=== PATIENT | female | born 1985 | race Caucasian/White ===

== ENCOUNTER 2017-08-12 01:43 | Day surgery (SDC) | payer BC ==
[~2017-08-12] VITALS: Ht 188 cm; Wt 94.3 kg
[~2017-08-12 01:43] MED LIST: BIRTH CONTROL PILLS; LOOVRAL PO; MEGE40TA19 PO; no routine meds
[2017-08-12 09:51] LABS: PLATELET COUNT, AUTOMATED 316 K/uL (150-450)
[2017-08-12 10:06] VITALS: BP 137/73
[2017-08-12] MEDS ORDERED: NORMOSOL R SOLN(*) 1000 ML BAG 1,000 ML IV PRN (10:15)
[2017-08-12] MEDS ORDERED: LIDOCAINE/SOD BICARB 8.4% SYR ID ONE (10:15)
[2017-08-12] MEDS ORDERED: MIDAZOLAM 2 MG/2 ML VIAL IVP PRN (10:15)
[2017-08-12] MEDS ORDERED: ceFAZolin(*) 2GM/D5W 50ML 50 ML IVPB ONE (10:15)
[2017-08-12] MEDS ORDERED: FAMOTIDINE 20 MG TAB PO ONE (10:15)
[2017-08-12] MEDS ORDERED: fentaNYL CITR 100 MCG/2 ML AMP ONE ×3 (10:50→13:32)
[2017-08-12] MEDS ORDERED: MIDAZOLAM 2 MG/2 ML VIAL ONE (10:50)
[2017-08-12] MEDS ORDERED: PROPOFOL EMUL(*) 10MG/ML 20 ML 20 ML ONE (10:51)
[2017-08-12] MEDS ORDERED: ONDANSETRON 4 MG/2 ML VIAL ONE (10:51)
[2017-08-12] MEDS ORDERED: ROCURONIUM BROM 10 MG/ML 10 ML ONE (10:51)
[2017-08-12] MEDS ORDERED: LIDOCAINE MPF 1% 5 ML VIAL ONE (10:51)
[2017-08-12] MEDS ORDERED: DEXAMETHASONE SOD PHOS 10MG/ML ONE (10:51)
[2017-08-12] MEDS ORDERED: ROPIVACAINE 0.2% 20 ML VIAL ONE ×2 (11:43→11:54)
[2017-08-12] MEDS ORDERED: ePHEDrine 25 MG/5 ML DISP.SYR IVP ONE (12:15)
[2017-08-12] MEDS ORDERED: SUGAMMADEX SOD 500 MG/5 ML SDV ONE (12:50)
[2017-08-12] MEDS ORDERED: LR(*) 1000 ML BAG 1,000 ML IV ONE (13:13)
[2017-08-12] MEDS ORDERED: METOCLOPRAMIDE 10 MG/2 ML SDV IVP PRN (13:15)
[2017-08-12] MEDS ORDERED: ONDANSETRON 4 MG/2 ML VIAL IVP PRN (13:15)
[2017-08-12] MEDS ORDERED: KETOROLAC 30 MG/ML VIAL ONE (13:16)
--- NOTE | 2017-08-12 13:34 | Post Operative Note ---
Operative Note - TECHNICAL INSPECTOR Operative Day Date: August 12, 2017 Time: 13:14 Physicians Surgeon: Itzel Shelley Anesthesia: GET 0.2% Rupivicaine Diagnosis Pre-Op Diagnosis: 32 y/o Heavy, Irregular Menses AUB-O Post-Op Diagnosis: Same Procedure Findings: Hysteroscopy: No mass or polyps noted. Appears to have significant amounts of Proliferative endometrium. Tubal ostia visualized at each cornua. Desicated tissued after Novasure ablation noted through out uterus. Total burn time 59 sec. 750 cc fluid used with 168 deficit. Laparoscopy: Significant midline anterior omental adhesions from umbilicus to just above scar. Uterus mobile with posterior fibroid. 8 Week size. Ovaries normal bilaterally. Procedure(s): Diagnostic hysteroscopy with guided D&C and Novasure Endometrial ablation Laparoscopic Bilateral Tubal ligation with Falope rings. Specimen Removed:(Maybe N/A): Endometrial currettage Complications: 0 known. Fluids Fluids: IV 1700 cc u/o: 100 Estimated Blood Loss: 50 Dictated Date OP Note Dictated: August 12, 2017 Time OP Note Dictated: 13:34 ITZEL SHELLEY DO August 12, 2017 13:34
--- NOTE | 2017-08-12 13:37 | OB/GYN Discharge Summary ---
Discharge Summary Reason for Hosp/Final Diag: (1) Abnormal uterine bleeding (AUB) Hospital Course & Plan: Underwent Novasure endometrial ablation and tubal ligation with out any difficulty. Pt to remain in PACU until she meets outpatient guidelines and will be dc'd home. Lates Vital Signs Vital Signs Date Time Temp Pulse Resp B/P (MAP) Pulse Ox O2 Delivery O2 Flow Rate FiO2 08/12/17 10:06 99.4 73 12 137/73 (94) Room Air Weight (Pounds): 208 Result Diagram: 08/12/17 0940 Condition: Improved Discharge: Home Home Meds Active Scripts Megestrol Acetate (MEGESTROL ACETATE) 40 Mg Tablet, 40 MG PO DAILY for bleeding for 30 Days, #30 TAB 0 Refills Prov:ITZEL BILLINGS DO 08/01/17 Discontinued Reported Medications Norgestrel-Ethinyl Estradiol (LOW-OGESTREL) 1 Each Tab, 1 EACH PO, TAB 08/01/17 [facility] [phone], Dr. Billings [phone] Follow up in: 2 wks PO Discharge Diet: As Tolerates, Resume Prior Admit Diet, Increase Fluid Intake Discharge Activity: As Tolerates, Pelvic Rest ITZEL BILLINGS DO August 12, 2017 13:37
[2017-08-12] MEDS ORDERED: PER PO (13:39)
[2017-08-12] MEDS ORDERED: IBUP800T37 PO (13:39)
[2017-08-12 14:15] VITALS: BP 128/77
[2017-08-12 14:35] VITALS: BP 122/69
[2017-08-12 15:44] VITALS: BP 122/87
[2017-08-12 15:45] VITALS: BP 114/64
[2017-08-12] MEDS ORDERED: IBUPROFEN 800 MG TAB PO SCH (17:00)
--- NOTE | 2017-08-12 17:48 | OPERATIVE REPORT 1 ---
EVENT DATE: August 12, 2017 SURGEON: Isaac Shelley DO ANESTHESIOLOGIST: Noel Small MD ANESTHESIA: General endotracheal intubation with 0.2% ropivacaine, 20 mL used for local only. PREOPERATIVE DIAGNOSES 1. A 32-year-old 1, para 1. 2. Heavy, irregular menses. 3. Abnormal uterine bleeding/ovulatory dysfunction. POSTOPERATIVE DIAGNOSES 1. A 32-year-old 1, para 1. 2. Heavy, irregular menses. 3. Abnormal uterine bleeding/ovulatory dysfunction. PROCEDURES PERFORMED 1. Diagnostic hysteroscopy with guided dilatation and curettage and NovaSure endometrial ablation. 2. Laparoscopic bilateral tubal ligation with Falope rings. FINDINGS Hysteroscopy: No masses or polyps noted. Appears to have significant amounts of proliferative endometrium. Tubal ostia visualized at each cornu. Desiccated tissue after the NovaSure endometrial ablation noted throughout the endometrium. Total burn time was 59 seconds. Normal saline 750 mL used for hysteroscopy with 168 mL deficit. Laparoscopy: Significant midline anterior omental adhesions from the umbilicus to just above the scar. Uterus was mobile, approximately 8 weeks size. There was a posterior fibroid noted. Ovaries were normal bilaterally. There did also appear to be some adhesions in the pelvis secondary to history of endometriosis, but the uterus was freely mobile and easily visualized. There were Falope rings bilaterally post surgery with blanching of the fallopian tubes noted after Falope rings were placed. ESTIMATED BLOOD LOSS 50 mL PATHOLOGY Endometrial curettage. INTRAVENOUS FLUIDS 1700 mL URINE OUTPUT 100 mL COMPLICATIONS None known. CONDITION Stable to recovery room and then to home. COUNTS Correct times two for all needles, laps, sponges, and instruments. INDICATIONS AND CONSENT Patient is a 32-year-old 1, para 1, who presented to clinic with the chief complaint of heavy, irregular menses. She was initially worked up, and it was felt to be ovulatory dysfunction. She was started on cyclical progesterone secondary to concerns for maintaining fertility. Patient would take progesterone therapy the second half of each month. She did this for two months, but at the second month, began to have significant heavy bleeding. She was started on combined oral contraceptions, but continued to bleed throughout. Patient presented to discuss possible surgical management and desired to proceed with laparoscopic tubal and NovaSure endometrial ablation. Patient was consented for both procedures, and appropriate consents were signed and agreed to proceed accordingly. DESCRIPTION OF PROCEDURE Patient was taken to the operating room where she was placed in dorsal supine position. She was placed under general endotracheal intubation. Once anesthesia was achieved, she was then placed in dorsal lithotomy position. She was then prepped and draped in the usual sterile manner. A sterile speculum was then placed inside the vagina. The cervix was visualized and grasped with a single-toothed tenaculum on the anterior aspect of the cervix. With the tenaculum stabilizing the uterus, the uterus was sounded 8 cm. An endometrial Pipelle was used to collect endometrial biopsy. Cervix was not needed to be dilated. The hysteroscope was easily placed through the cervix, and the uterus was visualized. No masses or polyps were noted. The endometrium appeared significantly fluffy and was proliferative throughout. One pass with a sharp curettage was performed. The NovaSure device was then asked for. NovaSure ablation: NovaSure device was placed through the cervix. The cervical cap was pushed up against the cervix, device deployed. The NovaSure device went through the appropriate safety checks, and once cavity assessment was performed and found to be okay, the device was enabled. The device circulated for approximately 59 seconds, then the ablation was finished. The device was removed without difficulty. Hysteroscope was placed back inside the endometrium with desiccated tissue noted after the ablation. At this point, a single-toothed tenaculum was taken off of the cervix. Hemostasis was achieved with gentle pressure. Speculum was removed from the vagina, and the legs were then placed in low lithotomy position. Attention was then turned to the laparoscopic procedure. Laparoscopy: A 5 mm incision was created in the umbilicus with an 11 blade scalpel after approximately 5 mL of 0.2% ropivacaine. A Veress needle was then used to achieve pneumoperitoneum. With pneumoperitoneum achieved, the 5 mm trocar was placed under direct laparoscopic visualization. Significant adhesions were noted on the anterior abdominal wall from the umbilicus down to the pelvic brim. An 8 mm trocar was then placed 2 cm above the pubic symphysis. The left fallopian tube was grasped with the Falope ring applicator. The device was deployed. Immediate blanching was noted with the Falope ring over the mid isthmus region of the fallopian tube. Attention was then turned to the right fallopian tube. The Falope ring device grasped the fallopian tube. Device was deployed with blanching noted on the mid isthmic segment of the right fallopian tube. With the tubal performed, the 8 mm trocar was removed under laparoscopic visualization. Hemostasis was noted at that site. Pneumoperitoneum was released. The 5 mm trocar was removed, and the patient had the skin incisions then closed with a 4-0 Monocryl in a subcuticular manner, followed by Dermabond over top the incision. With the surgery completed, the patient was then awoken and transferred to the recovery room in stable condition. JOHN
== END 2017-08-12 14:15 | disposition home or self-care (01) ==
LOC: OR 01:43
PROVIDERS: ATTEND Student in an Organized Health Care Education/Training Program
DX: N92.1 Excessive and frequent menstruation with irregular cycle (principal); E28.9 Ovarian dysfunction, unspecified
CPT/HCPCS: 36415; 58563; 58671; 84703; 85025; 88305; J1100; J1885; J2001; J2250; J2405; J2704; J2795; J3010; J0690

== ENCOUNTER → 2018-03-02 | Outpatient (CLI) | payer BC ==
[~2018-03-02] MED LIST changes: +IBUP800T37 PO; +PER PO
--- NOTE | 2018-03-02 15:41 | RADIOLOGY IMAGING REPORT ---
FACILITY: [facility] [place] PATIENT NAME: Carmina King : 1985 MR: [id number] V: [id number] EXAM DATE: ORDERING PHYSICIAN: CHERYL SAVAGE TECHNOLOGIST: Location: [facility] Patient: Carmina King : 1985 Visit/Account:[id number] Date of Sevice: 03/02/2018 TRANSVAGINAL NON-OB HISTORY: Fell last Tuesday, pain in vaginal area started Tuesday, ablation done in September 2017, histo ry of section TECHNIQUE: Transvaginal ultrasound pelvis. COMPARISON: CT and pelvis December 08, 2010 FINDINGS: Uterus: ; 7.6 cm length x 3.8 cm AP x 4.4 cm transverse. Myometrium: Suggestion of mild adenomyosis.. There is a horizontal defect along the anterior uterus just above the lower uterine segment with acoustic shadowing. This extends towards the endometrium. Given the history of prior section this most likely accounts for this finding. Endometrium: Unremarkable; double thickness 4.6 mm. Cervix: Grossly negative. Ovaries: Right - 2.4 x 2.6 x 1.9 cm Left - 2.2 x 2.6 x 1.9 cm Blood flow is documented in each ovary by duplex Doppler ultrasound. Adnexa: Grossly unremarkable. Free pelvic fluid: None. IMPRESSION: Probable section scar along the anterior uterus. Suggestion of mild adenomyosis Report Dictated By: Heide Acuña MD at 03/02/2018 3:19 PM Report E-Signed By: Heide Acuña MD at 03/02/2018 3:35 PM WSN:[email or web address]
== END ==
LOC: US 01:23
PROVIDERS: ATTEND Physician Assistant
DX: S76.201A Unspecified injury of adductor muscle, fascia and tendon of right thigh, initial encounter (principal); N76.89 Other specified inflammation of vagina and vulva; R10.30 Lower abdominal pain, unspecified
CPT/HCPCS: 76830

== ENCOUNTER → 2018-07-25 | Outpatient (CLI) | payer BC ==
[~2018-07-25] MED LIST changes: +CEFT250V37 IM; +DOXY-229 PO
== END ==
LOC: LAB 14:28
PROVIDERS: ATTEND Student in an Organized Health Care Education/Training Program
DX: N89.8 Other specified noninflammatory disorders of vagina (principal)
CPT/HCPCS: 87210